=== PATIENT | female | born 1975 | race Caucasian/White ===

== ENCOUNTER 2016-12-10 00:13 | Emergency (ER) | payer OTHER ==
[2016-12-10 01:23] VITALS: BP 111/64; PULSE 64; TEMP 98; BMI 72.5
[2016-12-10] MEDS ORDERED: diphenhydrAMINE HCL 25 MG CAPSULE (FP) PO ONE ×2 (01:40→01:54)
[2016-12-10] MEDS ORDERED: CLOTRIMAZOLE/BETAMET DIPROP 15 GM TUBE TP SCH (01:45)
--- NOTE | 2016-12-10 01:46 | PDOC ---
History of Present Illness - General Chief Complaint: Vaginal Sxs Stated Complaint: VAGINAL SXS Time Seen by Provider: 12/10/16 00:48 History Source: Patient Exam Limitations: No Limitations - History of Present Illness Initial Comments: 12/10/16 01:40 Patient is a 41 year old female with h/o vertigo, stress incontinence, abdominoplasty, bilateral breast reduction c/o itching to the mons, groin and labia x 1 month, and peeling to her skin 2 days. States for about a week her symptoms have been worsening and the itching is unbearable. States about a month ago when the itching started, she went to her [facility] and was given a 1 day suppository but no relief of symptoms. Denies any itching in the vagina. She is sexually active with one partner without condoms. No history of any STD. States she had GC Chlamydia testing done 1 month ago and it was negative. She reports at what prompted her to the emergency room was when she goggled her symptoms and it told her she may have herpes. pmd: Dr. Hancock PMHX: as above PSOCHx: neg etoh, durg, cig ALL: NKDA GENERAL/CONSTITUTIONAL: [No fever or chills. No weakness. No weight change.] HEAD, EYES, EARS, NOSE AND THROAT: [No change in vision. No ear pain or discharge. No sore throat.] CARDIOVASCULAR: [No chest pain or shortness of breath.] RESPIRATORY: [No cough, wheezing, or hemoptysis.] GASTROINTESTINAL: [No nausea, vomiting, diarrhea or constipation. No rectal bleeding.] GENITOURINARY: [No dysuria, frequency, or change in urination.] MUSCULOSKELETAL: [No joint or muscle swelling or pain. No neck or back pain.] SKIN AND BREASTS: [No rash or easy bruising.] NEUROLOGIC: [No headache, vertigo, loss of consciousness, or loss of sensation.] PSYCHIATRIC: [No depression or anxiety.] ENDOCRINE: [No increased thirst. No abnormal weight change.] HEMATOLOGIC/LYMPHATIC: [No anemia, easy bleeding, or history of blood clots.] ALLERGIC/IMMUNOLOGIC: [No hives or skin allergy. No latex allergy.] GENERAL: [The patient is awake, alert, and fully oriented, in no acute distress. ] HEAD: [Normal with no signs of trauma.] EYES: [Pupils equal, round and reactive to light, extraocular movements intact, sclera anicteric, conjunctiva clear.] ENT: [Ears normal, nares patent, oropharynx clear without exudates. Moist mucous membranes.] NECK: [Normal range of motion, supple without lymphadenopathy, JVD, or masses.] LUNGS: [Breath sounds equal, clear to auscultation bilaterally. No wheezes, and no crackles.] HEART: [Regular rate and rhythm, normal S1 and S2 without murmur, rub.] ABDOMEN: [Soft, nontender, normoactive bowel sounds. No guarding, no rebound. No masses.] EXPRESSIVE THERAPIST: Hypopigmented well demarcated rash on the mons extending to the groin and to the fold along the thigh, with excoriations to the upper right mons and right thigh. Physiological discharge in vault. EXTREMITIES: [Normal range of motion, no edema. No clubbing or cyanosis. No cords, erythema, or tenderness.] NEUROLOGICAL: [Cranial nerves II through XII grossly intact. Normal speech, normal gait.] PSYCH: [Normal mood, normal affect.] SKIN: [Warm, Dry, normal turgor, no rashes or lesions noted.] Past History - Past Medical History Allergies/Adverse Reactions: Allergies Allergy/AdvReac Type Severity Reaction Status Date / Time No Known Allergies Allergy Verified 06/04/15 22:18 Home Medications: Ambulatory Orders Ibuprofen [Motrin -] 800 mg PO TID #20 tablet 09/26/12 Cephalexin Monohydrate [Keflex -] 500 mg PO BID #14 capsule 06/05/15 Clotrimazole [Antifungal] 30 gm TP BID #30 gm 12/10/16 - Immunization History Immunization Up to Date: Yes - Suicide/Smoking/Psychosocial Hx Smoking Status: No Smoking History: Never smoked Have you smoked in the past 12 months: No Number of Cigarettes Smoked Daily: 0 Information on smoking cessation initiated: No Hx Alcohol Use: No Drug/Substance Use Hx: No *Physical Exam - Vital Signs Last Vital Signs Temp Pulse Resp BP Pulse Ox 98.0 F 64 18 111/64 98 12/10/16 01:02 12/10/16 01:02 12/10/16 01:02 12/10/16 01:02 12/10/16 01:02 Medical Decision Making - Medical Decision Making 12/10/16 01:45 Patient is a 41 year old female with h/o vertigo, stress incontinence, abdominoplasty, bilateral breast reduction c/o itching to the mons, groin and labia x 1 month, and peeling to her skin 2 days. States for about a week her symptoms have been worsening and the itching is unbearable. Based on exam symptoms are consistent with tinea cruris. Treatment Chlortrimazole/cortisone cream, Benadryl by mouth for itching. Instructions for peak patient to follow with EXPRESSIVE THERAPIST I discussed the physical exam findings, ancillary test results and final diagnoses with the patient. I answered all of the patient's questions. The patient was satisfied with the care received and felt comfortable with the discharge plan and treatment plan. The Patient agrees to follow up with the primary care physician within 24-72 hours. *DC/Admit/Observation/Transfer Diagnosis at time of Disposition: Tinea cruris - Discharge Dispostion Disposition: HOME Condition at time of disposition: Stable - Referrals Referrals: Felisa Coleman MD [Primary Care Provider] - - Patient Instructions Printed Discharge Instructions: Tinea Cruris: PABLITO Obrien Itch Additional Instructions: Your Discharge Instructions: You must call primary care physician within 24 hours to arrange follow-up. Return to the Emergency Department with any new, persistent or worsening symptoms, for fever, chills, SOB, dizziness or any other concerning changes that may occur. You must follow-up with her EXPRESSIVE THERAPIST.
== END 2016-12-10 02:27 | disposition home or self-care (01) ==
LOC: JER 00:13
DX: B35.6 Tinea cruris (principal)
CPT/HCPCS: 99282-25

== ENCOUNTER 2017-09-01 17:08 | Emergency (ER) | payer OTHER ==
[2017-09-01 17:20] VITALS: BP 119/76; PULSE 70; TEMP 98.8; BMI 32.8
--- NOTE | 2017-09-01 18:40 | PDOC ---
History of Present Illness - General Chief Complaint: Suicidal Stated Complaint: PANIC ATTACK Time Seen by Provider: 09/01/17 17:35 History Source: Patient Exam Limitations: No Limitations - History of Present Illness Initial Comments: 09/01/17 20:41 The patient is a 42 year old female with a significant past medical history of anxiety and depression who presents to the ED with an episode of depression and anxiety since earlier today. The patient reports having a panic attack earlier today that she describes as shaking and crying. Patient states she went to her car and sat inside for hours, contemplating hurting herself but did not have a plan. Patient states she is currently under a lot of financial stress and her anxiety and depression are progressively worsening. She notes she was recently prescribed a new anxiety/depression medication that is unable to remember the name. Denies any other symptoms. Social: The patient is a mother of three children (21, 14, 11) who all live at home with her. Timing/Duration: changing over time Severity: moderate Associated Symptoms: reports: denies symptoms Past History - Past Medical History Allergies/Adverse Reactions: Allergies Allergy/AdvReac Type Severity Reaction Status Date / Time No Known Allergies Allergy Verified 09/01/17 17:11 Home Medications: Ambulatory Orders Ibuprofen [Motrin -] 800 mg PO TID #20 tablet 09/26/12 Cephalexin Monohydrate [Keflex -] 500 mg PO BID #14 capsule 06/05/15 Clotrimazole [Antifungal] 30 gm TP BID #30 gm 12/10/16 COPD: No Psychiatric Problems: Yes (depression, panic attacks) - Reproductive History Cervical CA: No Dysfunctional Uterine Bleeding: No Ectopic : No Endometrial CA: No Polycystic Ovaries: No Tubal Ligation: No - Immunization History Immunization Up to Date: Yes - Suicide/Smoking/Psychosocial Hx Smoking Status: No Smoking History: Never smoked Have you smoked in the past 12 months: No Number of Cigarettes Smoked Daily: 0 Hx Alcohol Use: No Drug/Substance Use Hx: No Review of Systems - Review of Systems Able to Perform ROS?: Yes Comments:: 09/01/17 20:41 CONSTITUTIONAL: Absent: fever, chills, diaphoresis, generalized weakness, malaise, loss of appetite HEENT: Absent: rhinorrhea, nasal congestion, throat pain, throat swelling, difficulty swallowing, mouth swelling, ear pain, eye pain, visual Changes CARDIOVASCULAR: Absent: chest pain, syncope, palpitations, irregular heart rate, lightheadedness , peripheral edema RESPIRATORY: Absent: cough, shortness of breath, dyspnea with exertion, orthopnea, wheezing, stridor, hemoptysis GASTROINTESTINAL: Absent: abdominal pain, abdominal distension, nausea, vomiting, diarrhea, constipation, melena, hematochezia GENITOURINARY: Absent: dysuria, frequency, urgency, hesitancy, hematuria, flank pain, genital pain MUSCULOSKELETAL: Absent: myalgia, arthralgia, joint swelling SKIN: Absent: rash, itching, pallor HEMATOLOGIC/IMMUNOLOGIC: Absent: easy bleeding, easy bruising, lymphadenopathy, frequent infections ENDOCRINE: Absent: unexplained weight gain, unexplained weight loss, heat intolerance, cold intolerance NEUROLOGIC: Absent: headache, focal weakness or paresthesias, dizziness, unsteady gait, seizure, mental status changes, bladder or bowel incontinence PSYCHIATRIC: + depression, anxiety Absent: hallucinations. *Physical Exam - Vital Signs Last Vital Signs Temp Pulse Resp BP Pulse Ox 98.8 F 70 19 119/76 98 09/01/17 17:12 09/01/17 17:12 09/01/17 17:12 09/01/17 17:12 09/01/17 17:12 - Physical Exam General Appearance: Yes: Nourished, Appropriately Dressed HEENT: positive: Normal Voice Neck: positive: Supple Respiratory/Chest: positive: Lungs Clear Cardiovascular: positive: Regular Rhythm, Regular Rate Gastrointestinal/Abdominal: positive: Soft Musculoskeletal: positive: Normal Inspection Extremity: positive: Normal Inspection, Normal Range of Motion Integumentary: positive: Warm Neurologic: positive: Fully Oriented, Alert Medical Decision Making - Medical Decision Making 09/01/17 18:44 42 YO FEMALW W H/O AnXIETY,PANIC ATTACKS p/w depression over her financial situation -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 -she currently is on public assistance living with her sons ages 21,14,11 She DENIES an actual plan to hurt herself, She said she would not do that because of her sons -SHE has taken anti depression meds for the past 20 years i consulted the door captain, Chitra Campbell and she will see the pt tonyaniv *DC/Admit/Observation/Transfer Diagnosis at time of Disposition: Anxiety - Discharge Dispostion Disposition: HOME Condition at time of disposition: Stable - Referrals Referrals: Felisa Coleman MD [Primary Care Provider] - Chitra Campbell NP [Nurse Practitioner] - - Patient Instructions Printed Discharge Instructions: DI for Anxiety -- Adult Additional Instructions: PLEASE TAKE YOUR REGUALE MEDICATIONS PLEASE MAKE AN APPOINTMENT WITH EITHER MS CAMPBELL OR YOUR REGULAR DOCTOR - Post Discharge Activity Forms/Work/School Notes: My Personal Safety Plan
== END 2017-09-01 19:44 | disposition home or self-care (01) ==
LOC: JER 17:08
DX: F41.8 Other specified anxiety disorders (principal)
CPT/HCPCS: 99281-25

== ENCOUNTER 2018-04-18 17:14 | Emergency (ER) | payer OTHER ==
--- NOTE | 2018-04-18 17:35 | PDOC ---
Rapid Medical Evaluation Time Seen by Provider: 04/18/18 17:33 Medical Evaluation: Allergies Allergy/AdvReac Type Severity Reaction Status Date / Time No Known Allergies Allergy Verified 09/01/17 17:11 04/18/18 17:33 I have performed a brief in-person evaluation of this patient. The patient presents with a chief complaint of:Lower back pain x2 months with Lower extremity radiculopathy Pertinent physical exam findings:No gross deficits I have ordered the following:U preg The patient will proceed to the ED for further evaluation. 04/18/18 17:34 Discharge Disposition - Diagnosis Back pain - Referrals - Patient Instructions - Post Discharge Activity
[2018-04-18 17:37] VITALS: BP 122/66; PULSE 74; TEMP 98.1; BMI 31.4
[2018-04-18] MEDS ORDERED: KETOROLAC TROMETHAMINE 60 MG/2 ML VIAL IM ONE (18:25)
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
[2018-04-18] MEDS ORDERED: KETOROLAC TROMETHAMINE 60 MG/2 ML VIAL ONE (18:31)
== END 2018-04-18 18:45 | disposition home or self-care (01) ==
LOC: JERFT 17:14
PROC: 3E0233Z Introduction of Anti-inflammatory into Muscle, Percutaneous Approach (ICD-10-PCS; principal; 2018-04-18)
DX: M54.5 Low back pain (principal); G89.29 Other chronic pain; F41.8 Other specified anxiety disorders; F41.0 Panic disorder [episodic paroxysmal anxiety]
CPT/HCPCS: 84703; 96372; 99281-25

== ENCOUNTER 2018-07-22 18:25 | Emergency (ER) | payer OTHER | END 2018-07-22 21:13 | disposition home or self-care (01) | LOC: JER 18:25 ==

== ENCOUNTER 2018-10-31 12:20 | Inpatient (IN) | payer OTHER ==
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
[2018-10-31 13:55] LABS: BASO % 0.3 % (0-2.0); EOS % 1.7 % (0-4.5); HEMOGLOBIN 11.2 GM/dL (10.7-15.3); LYMPH % 32.3 % (8-40); MCH 24.4 pg (25.7-33.7); MEAN CELL VOLUME 73.9 fl (80-96); MEAN PLT VOLUME 10.4 fl (7.5-11.1); MONO % 10.9 % (3.8-10.2); NEUT % 54.8 % (42.8-82.8); PLATELET COUNT 155 K/MM3 (134-434); RDW 17.4 % (11.6-15.6)
[2018-10-31 14:12] LABS: ALBUMIN 3.7 g/dl (3.4-5.0); ALK PHOS 82 U/L (45-117); AMYLASE 73 U/L (25-115); ANION GAP 8 MMOL/L (8-16); BLOOD UREA NITROGEN 10.9 mg/dL (7-18); CALCIUM 8.6 mg/dL (8.5-10.1); CHLORIDE 104 mmol/L (98-107); CO2 27 mmol/L (21-32); CREATININE 0.8 mg/dL (0.55-1.3); GLUCOSE,RANDOM 79 mg/dL (74-106); LIPASE 179 U/L (73-393); SGOT/AST 17 U/L (15-37); SGPT/ALT 17 U/L (13-61); SODIUM 139 mmol/L (136-145); TOT PROT 8.2 g/dl (6.4-8.2)
[2018-10-31 15:26] LABS: EPI CELLS 11.4 /HPF (0-5/HPF); HYALINE CASTS 69 /lpf (0-8); URINE APPEARANCE CLOUDY; URINE BACTERIA 4.7 /hpf (NEGATIVE); URINE BILIRUBIN NEGATIVE (NEGATIVE); URINE COLOR RED; URINE GLUCOSE (UA) NEGATIVE (NEGATIVE); URINE KETONE NEGATIVE (NEGATIVE); URINE LEUK ESTERASE 2+ (NEGATIVE); URINE NITRITE NEGATIVE (NEGATIVE); URINE PROTEIN 2+ (NEGATIVE); URINE UROBILINOGEN 0.2 mg/dL (0.2-1.0); URINE WBC 11 /hpf (0-5)
[2018-10-31] MEDS ORDERED: ACETAMINOPHEN 1000 MG/100 ML VIAL (NON FORMULARY) IVPB ONE (15:40)
[2018-10-31 15:44] LABS: URINE RBC 4222.8 /hpf (0-4); YEAST NONE SEEN (NEGATIVE)
[2018-10-31 15:46] LABS: COCAINE, UR NEGATIVE ng/ml (CUTOFF=300); METHADONE, UR NEGATIVE ng/ml (CUTOFF=300); OPIATES, URI NEGATIVE ng/ml (CUTOFF=300); PHENCYCLIDINE,URINE NEGATIVE ng/ml (CUTOFF=25); URINE AMPHETAMINES NEGATIVE ng/ml (CUTOFF=500); URINE BARBITURATES NEGATIVE ng/ml (CUTOFF=200); URINE BENZODIAZEPINES NEGATIVE ng/ml (CUTOFF=200)
[2018-10-31] MEDS ORDERED: ACETAMINOPHEN INJECTION 100 ML IVPB ONE (15:51)
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
--- NOTE | 2018-10-31 17:12 | PDOC ---
Documentation entered by Zhen Hamilton SCRIBE, acting as scribe for Catherine Kathleen MD. Catherine Kathleen MD: This documentation has been prepared by the Alfonso estrada Elijah, SCRIBE, under my direction and personally reviewed by me in its entirety. I confirm that the documentation accurately reflects all work, treatment, procedures, and medical decision making performed by me. Attending Attestation - Resident Resident Name: Douglas Jasso - ED Attending Attestation I have performed the following: I have examined & evaluated the patient, The case was reviewed & discussed with the resident, I agree w/resident's findings & plan, Exceptions are as noted - HPI HPI: 10/31/18 15:25 Patient is a 43 year old female with a significant past medical history of Anxiety disorder who presents to the ED with an overdose. Patient took an unknown amount of Lexipro secondary to stress. Patient endorses headache, nausea and abdominal pain. Denies active SI, but has thoughts of hurting herself from time to time. Denies AH, VH, HI. Denies other ingestions of drugs or etoh. Allergies: NKA - Physicial Exam PE: 10/31/18 15:29 Agree with Resident's Exam. - Medical Decision Making 10/31/18 17:10 43yo F presents to the ED with overdose on unknown amount of lexapro Pt placed on watch due to intermittent SI Rec's from poison control to medically observe on tele for 24hrs Labs wnl thus far SURGERY NURSE David consutled for psych evaluation Pt admitted to medicine for further dispo, will continue watch Heart Score/ECG Review #1 10/31/18 17:12 Twelve-lead EKG was performed and reviewed by me. Normal sinus rhythm, rate 69. Normal axis and intervals. No ST elevations or T-wave inversions. QTC is 4:30.
--- NOTE | 2018-10-31 18:18 | PN ---
Teaching Attending Note Name of Resident: Ana Aburto ATTENDING PHYSICIAN STATEMENT I saw and evaluated the patient. I reviewed the resident's note and discussed the case with the resident. I agree with the resident's findings and plan as documented. SUBJECTIVE: This is a 43 year old woman with a history of depression, panic attacks who comes to the ED after taking several Lexapro. She is lethargic but easily aroused. She reports feeling depressed and having suicidal thoughts but denies having a plan. She says she took extra Lexapro pills because she was feeling anxious and that it was not an attempt to kill herself. OBJECTIVE: Vital Signs Period Temp Pulse Resp BP Sys/Felix Pulse Ox Last 24 Hr 98.0 F 68-85 15-16 128-133/62-77 100-100 HEART: S1S2, RRR LUNGS: Clear ABDOMEN: Obese, soft, non-tender, non-distended, normal BS EXTREMITIES: No edema Laboratory Tests 10/31/18 10/31/18 10/31/18 13:20 13:20 13:20 WBC 6.0 RBC 4.60 Hgb 11.2 Hct 34.0 MCV 73.9 L MCH 24.4 L D MCHC 33.0 RDW 17.4 H Plt Count 155 D MPV 10.4 Absolute Neuts (auto) 3.3 Neutrophils % 54.8 D Lymphocytes % 32.3 D Monocytes % 10.9 H Eosinophils % 1.7 Basophils % 0.3 Nucleated RBC % 0 Sodium Potassium Chloride Carbon Dioxide Anion Gap BUN Creatinine Est GFR (CKD-EPI)AfAm Est GFR (CKD-EPI)NonAf Random Glucose Calcium Total Bilirubin AST ALT Alkaline Phosphatase Creatine Kinase Troponin I Total Protein Albumin Total Amylase Lipase TSH Serum , Qual Negative Urine Color Urine Appearance Urine pH Ur Specific [place] Urine Protein Urine Glucose (UA) Urine Ketones Urine Blood Urine Nitrite Urine Bilirubin Urine Urobilinogen Ur Leukocyte Esterase Urine WBC (Auto) Urine RBC (Auto) Urine Casts (Auto) U Pathogenic Cast Auto U Epithel Cells (Auto) U Sm Round Cell (Auto) Urine Bacteria (Auto) Urine Yeast (Auto) Salicylates Cancelled Opiates Screen Methadone Screen Acetaminophen <5.0 Barbiturate Screen Phencyclidine Screen Ur Amphetamines Screen MDMA (Ecstasy) Screen Benzodiazepines Screen Cocaine Screen U Marijuana (THC) Screen Alcohol, Quantitative 10/31/18 10/31/18 10/31/18 13:20 13:30 14:04 WBC RBC Hgb Hct MCV MCH MCHC RDW Plt Count MPV Absolute Neuts (auto) Neutrophils % Lymphocytes % Monocytes % Eosinophils % Basophils % Nucleated RBC % Sodium 139 Potassium 4.0 Chloride 104 Carbon Dioxide 27 Anion Gap 8 BUN 10.9 Creatinine 0.8 Est GFR (CKD-EPI)AfAm 104.65 Est GFR (CKD-EPI)NonAf 90.30 Random Glucose 79 Calcium 8.6 Total Bilirubin 1.0 AST 17 ALT 17 Alkaline Phosphatase 82 Creatine Kinase 86 Troponin I < 0.02 Total Protein 8.2 Albumin 3.7 Total Amylase 73 Lipase 179 TSH 1.76 Serum , Qual Urine Color Urine Appearance Urine pH Ur Specific [place] Urine Protein Urine Glucose (UA) Urine Ketones Urine Blood Urine Nitrite Urine Bilirubin Urine Urobilinogen Ur Leukocyte Esterase Urine WBC (Auto) Urine RBC (Auto) Urine Casts (Auto) U Pathogenic Cast Auto U Epithel Cells (Auto) U Sm Round Cell (Auto) Urine Bacteria (Auto) Urine Yeast (Auto) Salicylates Opiates Screen Methadone Screen Acetaminophen Barbiturate Screen Phencyclidine Screen Ur Amphetamines Screen MDMA (Ecstasy) Screen Benzodiazepines Screen Cocaine Screen U Marijuana (THC) Screen Alcohol, Quantitative Cancelled < 3.0 10/31/18 10/31/18 15:00 15:00 WBC RBC Hgb Hct MCV MCH MCHC RDW Plt Count MPV Absolute Neuts (auto) Neutrophils % Lymphocytes % Monocytes % Eosinophils % Basophils % Nucleated RBC % Sodium Potassium Chloride Carbon Dioxide Anion Gap BUN Creatinine Est GFR (CKD-EPI)AfAm Est GFR (CKD-EPI)NonAf Random Glucose Calcium Total Bilirubin AST ALT Alkaline Phosphatase Creatine Kinase Troponin I Total Protein Albumin Total Amylase Lipase TSH Serum , Qual Urine Color Red Urine Appearance Cloudy Urine pH 5.0 Ur Specific [place] 1.014 Urine Protein 2+ H Urine Glucose (UA) Negative Urine Ketones Negative Urine Blood 3+ H Urine Nitrite Negative Urine Bilirubin Negative Urine Urobilinogen 0.2 Ur Leukocyte Esterase 2+ H Urine WBC (Auto) 11 Urine RBC (Auto) 4222.8 Urine Casts (Auto) 69 U Pathogenic Cast Auto None seen U Epithel Cells (Auto) 11.4 U Sm Round Cell (Auto) None seen Urine Bacteria (Auto) 4.7 Urine Yeast (Auto) None seen Salicylates Opiates Screen Negative Methadone Screen Negative Acetaminophen Barbiturate Screen Negative Phencyclidine Screen Negative Ur Amphetamines Screen Negative MDMA (Ecstasy) Screen Negative Benzodiazepines Screen Negative Cocaine Screen Negative U Marijuana (THC) Screen Negative Alcohol, Quantitative Home Medications Medication Instructions Recorded Cetirizine HCl [Zyrtec -] 10 mg PO DAILY 07/22/18 Fluticasone Prop 0.05% Nasal 1 - 2 spray NS BID #1 spray.pump 07/22/18 [Flonase -] Meclizine HCl 12.5 mg PO PRN PRN 07/22/18 Naproxen [Naprosyn -] 500 mg PO BID PRN 07/22/18 Escitalopram Oxalate [Lexapro -] 5 mg PO DAILY 10/31/18 ASSESSMENT AND PLAN: This is a 43 year old woman with a history of depression, panic attacks who presented to the ED after taking several Lexapro because she was feeling anxious. She reported suicidal thoughts but denied this was a suicide attempt. 1. Overdose with Lexapro - Monitor on telemetry - Serial EKGs - Hold Lexapro 2. Major depression with suicidal ideation - Psychiatry input appreciated
--- NOTE | 2018-10-31 19:19 | HP ---
Admitting History and Physical - Admission Chief Complaint: overdose on SSRI History Source: Patient - Past Medical History ...LMP: 12/08/16 Psych: Yes: Anxiety, Depression, Panic - Smoking History Smoking history: Unknown if ever smoked Have you smoked in the past 12 months: No Aproximately how many cigarettes per day: 0 - Alcohol/Substance Use Hx Alcohol Use: No Home Medications - Allergies Allergies/Adverse Reactions: Allergies Allergy/AdvReac Type Severity Reaction Status Date / Time No Known Allergies Allergy Verified 10/31/18 12:30 - Home Medications Home Medications: Ambulatory Orders Cetirizine HCl [Zyrtec -] 10 mg PO DAILY 07/22/18 Fluticasone Prop 0.05% Nasal [Flonase -] 1 - 2 spray NS BID #1 spray.pump Meclizine HCl 12.5 mg PO PRN PRN 07/22/18 Naproxen [Naprosyn -] 500 mg PO BID PRN 07/22/18 Escitalopram Oxalate [Lexapro -] 5 mg PO DAILY 10/31/18 Family Disease History - Family Disease History Other Family History: depression Review of Systems - Review of Systems Constitutional: reports: Weakness Gastrointestinal: reports: Nausea Neurological: reports: Dizziness Physical Examination Vital Signs: Vital Signs Temperature 98.0 F 10/31/18 12:28 Pulse Rate 85 10/31/18 15:28 Respiratory Rate 15 10/31/18 15:28 Blood Pressure 128/77 10/31/18 15:28 O2 Sat by Pulse Oximetry (%) 100 10/31/18 15:28 Constitutional: Yes: No Distress Cardiovascular: Yes: Regular Rate and Rhythm Respiratory: Yes: CTA Bilaterally Gastrointestinal: Yes: Normal Bowel Sounds, Soft Extremities: Yes: WNL Edema: No Neurological: Yes: WNL, Alert, Oriented Labs: CBC, BMP 10/31/18 13:20 10/31/18 13:20 Problem List - Problems (1) Overdose Code(s): T50.901A - POISONING BY UNSP DRUG/MEDS/BIOL SUBST, ACCIDENTAL, INIT Qualifiers: Encounter type: initial encounter Injury intent: undetermined intent Qualified Code(s): T50.904A - Poisoning by unspecified drugs, medicaments and biological substances, undetermined, initial encounter Assessment/Plan will do serial EKGS holding SSRI for now psych on board Zofran PRN for nausea ER spoke with poison control; serial EKGS needed and if seizure occurs PRN ativan Psych on board Visit type - Emergency Visit Emergency Visit: Yes ED Registration Date: 10/31/18 Care time: The patient presented to the Emergency Department on the above date and was hospitalized for further evaluation of their emergent condition. - New Patient This patient is new to me today: Yes Date on this admission: 10/31/18 - Critical Care Critical Care patient: No ATTENDING PHYSICIAN STATEMENT I saw and evaluated the patient. I reviewed the resident's note and discussed the case with the resident. I agree with the resident's findings and plan as documented. SUBJECTIVE: OBJECTIVE: ASSESSMENT AND PLAN:
[2018-11-01 02:45] VITALS: BMI 34.9
[2018-11-01] MEDS ORDERED: CEFTRIAXONE 1 GM in DEXTROSE 5%-WATER - 50 ML IVPB ONE (06:35)
[2018-11-01] MEDS ORDERED: DEXTROSE 5%-WATER - 50 ML IVPB ONE (07:00)
[2018-11-01] MEDS ORDERED: cefTRIAXone SODIUM 1 GM VIAL ONE (07:00)
[2018-11-01 07:15] LABS: ALBUMIN 3.3 g/dl (3.4-5.0); BILIRUBIN,TOTAL 0.9 mg/dL (0.2-1); BLOOD UREA NITROGEN 9.8 mg/dL (7-18); CALCIUM 8.5 mg/dL (8.5-10.1); CREATININE 0.7 mg/dL (0.55-1.3); MAGNESIUM 2.1 mg/dL (1.8-2.4); POTASSIUM 3.8 mmol/L (3.5-5.1); TOT PROT 7.2 g/dl (6.4-8.2)
[2018-11-01 07:33] LABS: BASO % 0.4 % (0-2.0); EOS % 2.9 % (0-4.5); HEMATOCRIT 31.4 % (32.4-45.2); HEMOGLOBIN 10.5 GM/dL (10.7-15.3); LYMPH % 37.3 % (8-40); MCH 24.5 pg (25.7-33.7); MCHC 33.4 g/dl (32.0-36.0); MEAN CELL VOLUME 73.5 fl (80-96); MEAN PLT VOLUME 10.9 fl (7.5-11.1); MONO % 10.5 % (3.8-10.2); NEUT % 48.9 % (42.8-82.8); PLATELET COUNT 157 K/MM3 (134-434); RBC 4.27 M/mm3 (3.60-5.2); RDW 17.3 % (11.6-15.6); WHITE BLOOD COUNT 5.2 K/mm3 (4.0-10.0)
--- NOTE | 2018-11-01 14:06 | PN ---
Physical Exam: SUBJECTIVE: Patient seen and examined. She reports feeling lightheaded. OBJECTIVE: Vital Signs Period Temp Pulse Resp BP Sys/Felix Pulse Ox Last 24 Hr 97.9 F-98.3 F 60-85 13-17 118-136/68-82 99-100 GENERAL: The patient is awake, alert, and fully oriented, in no acute distress. LUNGS: Breath sounds equal, clear to auscultation bilaterally, no wheezes, no crackles, no accessory muscle use. HEART: Regular rate and rhythm, S1, S2 without murmur, rub or gallop. ABDOMEN: Obese, soft, nontender, nondistended, normoactive bowel sounds, no guarding, no rebound, no hepatosplenomegaly, no masses. EXTREMITIES: 2+ pulses, warm, well-perfused, no edema. NEUROLOGICAL: Cranial nerves II through XII grossly intact. Normal speech. Strength 5/5 throughout. Sensation intact. Gait not observed. Laboratory Results - last 24 hr 10/31/18 10/31/18 10/31/18 13:20 13:20 13:30 WBC RBC Hgb Hct MCV MCH MCHC RDW Plt Count MPV Absolute Neuts (auto) Neutrophils % Lymphocytes % Monocytes % Eosinophils % Basophils % Nucleated RBC % Sodium 139 Potassium 4.0 Chloride 104 Carbon Dioxide 27 Anion Gap 8 BUN 10.9 Creatinine 0.8 Est GFR (CKD-EPI)AfAm 104.65 Est GFR (CKD-EPI)NonAf 90.30 Random Glucose 79 Calcium 8.6 Magnesium Total Bilirubin 1.0 AST 17 ALT 17 Alkaline Phosphatase 82 Creatine Kinase 86 Troponin I < 0.02 Total Protein 8.2 Albumin 3.7 Total Amylase 73 Lipase 179 TSH 1.76 Urine Color Urine Appearance Urine pH Ur Specific [place] Urine Protein Urine Glucose (UA) Urine Ketones Urine Blood Urine Nitrite Urine Bilirubin Urine Urobilinogen Ur Leukocyte Esterase Urine WBC (Auto) Urine RBC (Auto) Urine Casts (Auto) U Pathogenic Cast Auto U Epithel Cells (Auto) U Sm Round Cell (Auto) Urine Bacteria (Auto) Urine Yeast (Auto) Salicylates Cancelled Opiates Screen Methadone Screen Acetaminophen <5.0 Barbiturate Screen Phencyclidine Screen Ur Amphetamines Screen MDMA (Ecstasy) Screen Benzodiazepines Screen Cocaine Screen U Marijuana (THC) Screen Alcohol, Quantitative Cancelled 10/31/18 10/31/18 10/31/18 13:43 14:04 15:00 WBC RBC Hgb Hct MCV MCH MCHC RDW Plt Count MPV Absolute Neuts (auto) Neutrophils % Lymphocytes % Monocytes % Eosinophils % Basophils % Nucleated RBC % Sodium Potassium Chloride Carbon Dioxide Anion Gap BUN Creatinine Est GFR (CKD-EPI)AfAm Est GFR (CKD-EPI)NonAf Random Glucose Calcium Magnesium Total Bilirubin AST ALT Alkaline Phosphatase Creatine Kinase Troponin I Total Protein Albumin Total Amylase Lipase TSH Urine Color Urine Appearance Urine pH Ur Specific [place] Urine Protein Urine Glucose (UA) Urine Ketones Urine Blood Urine Nitrite Urine Bilirubin Urine Urobilinogen Ur Leukocyte Esterase Urine WBC (Auto) Urine RBC (Auto) Urine Casts (Auto) U Pathogenic Cast Auto U Epithel Cells (Auto) U Sm Round Cell (Auto) Urine Bacteria (Auto) Urine Yeast (Auto) Salicylates < 1.7 L Opiates Screen Negative Methadone Screen Negative Acetaminophen Barbiturate Screen Negative Phencyclidine Screen Negative Ur Amphetamines Screen Negative MDMA (Ecstasy) Screen Negative Benzodiazepines Screen Negative Cocaine Screen Negative U Marijuana (THC) Screen Negative Alcohol, Quantitative < 3.0 10/31/18 11/01/18 11/01/18 15:00 05:55 05:55 WBC 5.2 RBC 4.27 Hgb 10.5 L Hct 31.4 L MCV 73.5 L MCH 24.5 L MCHC 33.4 RDW 17.3 H Plt Count 157 MPV 10.9 Absolute Neuts (auto) 2.5 Neutrophils % 48.9 Lymphocytes % 37.3 Monocytes % 10.5 H Eosinophils % 2.9 Basophils % 0.4 Nucleated RBC % 0 Sodium 141 Potassium 3.8 Chloride 107 Carbon Dioxide 28 Anion Gap 6 L BUN 9.8 Creatinine 0.7 Est GFR (CKD-EPI)AfAm 122.99 Est GFR (CKD-EPI)NonAf 106.12 Random Glucose 89 Calcium 8.5 Magnesium 2.1 Total Bilirubin 0.9 AST 17 ALT 15 Alkaline Phosphatase 72 Creatine Kinase Troponin I Total Protein 7.2 Albumin 3.3 L Total Amylase Lipase TSH Urine Color Red Urine Appearance Cloudy Urine pH 5.0 Ur Specific [place] 1.014 Urine Protein 2+ H Urine Glucose (UA) Negative Urine Ketones Negative Urine Blood 3+ H Urine Nitrite Negative Urine Bilirubin Negative Urine Urobilinogen 0.2 Ur Leukocyte Esterase 2+ H Urine WBC (Auto) 11 Urine RBC (Auto) 4222.8 Urine Casts (Auto) 69 U Pathogenic Cast Auto None seen U Epithel Cells (Auto) 11.4 U Sm Round Cell (Auto) None seen Urine Bacteria (Auto) 4.7 Urine Yeast (Auto) None seen Salicylates Opiates Screen Methadone Screen Acetaminophen Barbiturate Screen Phencyclidine Screen Ur Amphetamines Screen MDMA (Ecstasy) Screen Benzodiazepines Screen Cocaine Screen U Marijuana (THC) Screen Alcohol, Quantitative ASSESSMENT/PLAN: This is a 43 year old woman with a history of depression, panic attacks who presented to the ED after taking several Lexapro because she was feeling anxious. She reported suicidal thoughts but denied this was a suicide attempt. 1. Overdose with Lexapro - No arrhythmias or QT prolongation noted - Continue to hold Lexapro 2. Major depression with suicidal ideation - Lexapro on hold secondary to overdose - Continue 1:1 observation - Psychiatry follow-up 3. Obesity with BMI 35.0 Visit type - Emergency Visit Emergency Visit: Yes ED Registration Date: 10/31/18 Care time: The patient presented to the Emergency Department on the above date and was hospitalized for further evaluation of their emergent condition. - New Patient This patient is new to me today: No - Critical Care Critical Care patient: No - Discharge Referral Referred to [facility] Med P.C.: No
--- NOTE | 2018-11-01 16:02 | EKG ---
Test Reason : Blood Pressure : / mmHG Vent. Rate : 057 BPM Atrial Rate : 057 BPM P-R Int : 136 ms QRS Dur : 074 ms QT Int : 442 ms P-R-T Axes : 060 066 051 degrees QTc Int : 430 ms SINUS BRADYCARDIA OTHERWISE NORMAL ECG WHEN COMPARED WITH ECG OF 31-OCT-2018 12:41, NO SIGNIFICANT CHANGE WAS FOUND Confirmed by DOMO SERRANO, BEV ([id number]) on 11/01/2018 4:01:43 PM Referred By: Confirmed By:BEV OLIVEROS MD
--- NOTE | 2018-11-01 16:05 | EKG ---
Test Reason : Blood Pressure : / mmHG Vent. Rate : 069 BPM Atrial Rate : 069 BPM P-R Int : 140 ms QRS Dur : 074 ms QT Int : 402 ms P-R-T Axes : 034 056 046 degrees QTc Int : 430 ms NORMAL SINUS RHYTHM NORMAL ECG WHEN COMPARED WITH ECG OF 22-JUL-2018 18:24, NO SIGNIFICANT CHANGE WAS FOUND Confirmed by BEV OLIVEROS MD ([id number]) on 11/01/2018 4:05:20 PM Referred By: Confirmed By:BEV OLIVEROS MD
[2018-11-01] MEDS ORDERED: ACETAMINOPHEN 1000 MG/100 ML VIAL (NON FORMULARY) IVPB ONE (20:05)
[2018-11-02 06:09] LABS: HEMATOCRIT 31.7 % (32.4-45.2); HEMOGLOBIN 10.6 GM/dL (10.7-15.3); MCH 24.6 pg (25.7-33.7); MCHC 33.5 g/dl (32.0-36.0); MEAN CELL VOLUME 73.5 fl (80-96); MEAN PLT VOLUME 10.2 fl (7.5-11.1); PLATELET COUNT 154 K/MM3 (134-434); RBC 4.31 M/mm3 (3.60-5.2); RDW 17.3 % (11.6-15.6); WHITE BLOOD COUNT 5.4 K/mm3 (4.0-10.0)
[2018-11-02 06:38] LABS: ALBUMIN 3.3 g/dl (3.4-5.0); BILIRUBIN,TOTAL 0.7 mg/dL (0.2-1); BLOOD UREA NITROGEN 11.9 mg/dL (7-18); CALCIUM 8.6 mg/dL (8.5-10.1); CREATININE 0.7 mg/dL (0.55-1.3); POTASSIUM 3.7 mmol/L (3.5-5.1); TOT PROT 7.5 g/dl (6.4-8.2)
--- NOTE | 2018-11-02 13:48 | CON.PSY ---
Psychiatry Consult Chief Complaint: 43 Yw4ra 9old female mother of two teenage kids admitted with an Lexapro overdose. 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 Gets psych meds from her Primary cxare MD. Symptoms: reports: Depressed Mood, Anhedonia, Decreased Energy, Impaired Concentration, Decreased Motivation - Previous Psychiatric Treatment Outpatient: Less than 6 mos ago Inpatient: One prior admission - Previous Substance Abuse Treatment Outpatient: None Inpatient: None - Reason for Previous Treatment Reason for Previous Treatment: Major Depression, Suicidal Attempt/Behavior - Allergies Allergies: Allergies Allergy/AdvReac Type Severity Reaction Status Date / Time No Known Allergies Allergy Verified 10/31/18 12:30 - Current Living Status Usual Living Arrangement: With Child - Current Mental Status Evaluation Appearance: Disheveled Attitude: Guarded - Affect Affect: Constrictive Appropriateness: Appropriate to Content - Mood Mood: Depressed - Speech/Language Expressive: Delayed - Psychomotor Activity Psychomotor Activity: Slowed - Thought Process Thought Process: Intact - Thought Content Hallucinations: Absent Delusions: Absent - Self Perception Self Perception: No Impairment - Cognition Attention: Alert Memory, Immediate Recall: Intact Memory, Short Term: 3/3 Memory, Remote with Promptin/3 - Concentration Serial Sevens Intact: Yes Simple Calculations Intact: Yes - Abstraction Proverb Interpretation: Intact Judgement: Moderately Impaired - Insight Insight: Impaired - Impulse Control Impulse Control: Moderately Impaired - Suicidal Ideation Suicidal Ideation: Yes - Homicidal Ideation Homicidal Ideation: No Assessment/Plan 1) cONTINUE with 1:1. 2) May need In Patient Psych admission. 3) will follow.
--- NOTE | 2018-11-02 14:48 | PN ---
Physical Exam: SUBJECTIVE: Patient seen and examined. She feels less dizzy today. She denies CP , palpitations, SOB, nausea, vomiting. OBJECTIVE: Vital Signs Period Temp Pulse Resp BP Sys/Felix Pulse Ox Last 24 Hr 97.8 F-98.5 F 54-77 12-16 105-135/47-96 100-100 GENERAL: The patient is awake, alert, and fully oriented, in no acute distress. LUNGS: Breath sounds equal, clear to auscultation bilaterally, no wheezes, no crackles, no accessory muscle use. HEART: Regular rate and rhythm, S1, S2 without murmur, rub or gallop. ABDOMEN: Obese, soft, nontender, nondistended, normoactive bowel sounds, no guarding, no rebound, no hepatosplenomegaly, no masses. EXTREMITIES: 2+ pulses, warm, well-perfused, no edema. Laboratory Results - last 24 hr 11/02/18 11/02/18 05:40 05:40 WBC 5.4 RBC 4.31 Hgb 10.6 L Hct 31.7 L MCV 73.5 L MCH 24.6 L MCHC 33.5 RDW 17.3 H Plt Count 154 MPV 10.2 Sodium 140 Potassium 3.7 Chloride 105 Carbon Dioxide 27 Anion Gap 7 L BUN 11.9 Creatinine 0.7 Est GFR (CKD-EPI)AfAm 122.99 Est GFR (CKD-EPI)NonAf 106.12 Random Glucose 92 Calcium 8.6 Total Bilirubin 0.7 AST 18 ALT 16 Alkaline Phosphatase 70 Total Protein 7.5 Albumin 3.3 L ASSESSMENT/PLAN: This is a 43 year old woman with a history of depression, panic attacks who presented to the ED after taking several Lexapro because she was feeling anxious. She reported suicidal thoughts but denied this was a suicide attempt. 1. Overdose with Lexapro - No arrhythmias or QT prolongation noted - Continue to hold Lexapro - Discontinue telemetry 2. Major depression with suicidal ideation - Lexapro on hold secondary to overdose - Continue 1:1 observation - Psychiatry input appreciated 3. Obesity with BMI 35.0 Visit type - Emergency Visit Emergency Visit: Yes ED Registration Date: 10/31/18 Care time: The patient presented to the Emergency Department on the above date and was hospitalized for further evaluation of their emergent condition. - New Patient This patient is new to me today: No - Critical Care Critical Care patient: No - Discharge Referral Referred to [facility] Med P.C.: No
[2018-11-02] MEDS ORDERED: MELATONIN 5 MG TABLETS PO ONE (22:49)
[2018-11-03 07:34] LABS: HEMATOCRIT 32.7 % (32.4-45.2); HEMOGLOBIN 10.8 GM/dL (10.7-15.3); MCH 24.5 pg (25.7-33.7); MCHC 32.9 g/dl (32.0-36.0); MEAN CELL VOLUME 74.3 fl (80-96); PLATELET COUNT 161 K/MM3 (134-434); RDW 17.2 % (11.6-15.6); WHITE BLOOD COUNT 7.1 K/mm3 (4.0-10.0)
[2018-11-03 08:01] LABS: ALBUMIN 3.3 g/dl (3.4-5.0); BILIRUBIN,TOTAL 0.7 mg/dL (0.2-1); BLOOD UREA NITROGEN 10.7 mg/dL (7-18); CALCIUM 8.8 mg/dL (8.5-10.1); CREATININE 0.8 mg/dL (0.55-1.3); TOT PROT 7.6 g/dl (6.4-8.2)
--- NOTE | 2018-11-03 10:01 | PN ---
Physical Exam: SUBJECTIVE: Patient seen and examined OBJECTIVE: Vital Signs Period Temp Pulse Resp BP Sys/Felix Pulse Ox Last 24 Hr 97.8 F-98.0 F 65-88 12-18 100-126/54-96 98 GENERAL: The patient is awake, alert, and fully oriented, in no acute distress. HEAD: Normal with no signs of trauma. EYES: PERRL, extraocular movements intact, sclera anicteric, conjunctiva clear. No ptosis. ENT: Ears normal, nares patent, oropharynx clear without exudates, moist mucous membranes. NECK: Trachea midline, full range of motion, supple. LUNGS: Breath sounds equal, clear to auscultation bilaterally, no wheezes, no crackles, no accessory muscle use. HEART: Regular rate and rhythm, S1, S2 without murmur, rub or gallop. ABDOMEN: Soft, nontender, nondistended, normoactive bowel sounds, no guarding, no rebound, no hepatosplenomegaly, no masses. EXTREMITIES: 2+ pulses, warm, well-perfused, no edema. NEUROLOGICAL: Cranial nerves II through XII grossly intact. Normal speech, gait not observed. PSYCH: Normal mood, normal affect. SKIN: Warm, dry, normal turgor, no rashes or lesions noted Laboratory Results - last 24 hr 11/03/18 11/03/18 06:30 06:30 WBC 7.1 RBC 4.40 Hgb 10.8 Hct 32.7 MCV 74.3 L MCH 24.5 L MCHC 32.9 RDW 17.2 H Plt Count 161 MPV 11.0 Sodium 138 Potassium 4.0 Chloride 104 Carbon Dioxide 27 Anion Gap 6 L BUN 10.7 Creatinine 0.8 Est GFR (CKD-EPI)AfAm 104.65 Est GFR (CKD-EPI)NonAf 90.30 Random Glucose 86 Calcium 8.8 Total Bilirubin 0.7 AST 19 ALT 19 Alkaline Phosphatase 69 Total Protein 7.6 Albumin 3.3 L ASSESSMENT/PLAN: ATTENDING PHYSICIAN STATEMENT I saw and evaluated the patient. I reviewed the resident's note and discussed the case with the resident. I agree with the resident's findings and plan as documented. SUBJECTIVE: OBJECTIVE: ASSESSMENT AND PLAN:
--- NOTE | 2018-11-03 13:22 | PN ---
Teaching Attending Note Name of Resident: Myles Grace ATTENDING PHYSICIAN STATEMENT I saw and evaluated the patient. I reviewed the resident's note and discussed the case with the resident. I agree with the resident's findings and plan as documented. SUBJECTIVE: Patient has no complaints. OBJECTIVE: Vital Signs Period Temp Pulse Resp BP Sys/Felix Pulse Ox Last 24 Hr 97.8 F-98.0 F 65-88 14-18 100-126/54-82 98 HEART: S1S2, RRR LUNGS: Clear ABDOMEN: Obese, soft, non-tender, non-distended, normal BS EXTREMITIES: No edema Laboratory Results - last 24 hr 11/03/18 11/03/18 06:30 06:30 WBC 7.1 RBC 4.40 Hgb 10.8 Hct 32.7 MCV 74.3 L MCH 24.5 L MCHC 32.9 RDW 17.2 H Plt Count 161 MPV 11.0 Sodium 138 Potassium 4.0 Chloride 104 Carbon Dioxide 27 Anion Gap 6 L BUN 10.7 Creatinine 0.8 Est GFR (CKD-EPI)AfAm 104.65 Est GFR (CKD-EPI)NonAf 90.30 Random Glucose 86 Calcium 8.8 Total Bilirubin 0.7 AST 19 ALT 19 Alkaline Phosphatase 69 Total Protein 7.6 Albumin 3.3 L ASSESSMENT AND PLAN: This is a 43 year old woman with a history of depression, panic attacks who presented to the ED after taking several Lexapro because she was feeling anxious. She reported suicidal thoughts but denied this was a suicide attempt. 1. Overdose with Lexapro - No arrhythmias or QT prolongation noted - Continue to hold Lexapro - Patient now reports this was a suicide attempt - Continue 1:1 observation - Psychiatry follow-up 2. Major depression with suicidal ideation - Lexapro on hold secondary to overdose 3. Obesity with BMI 35.0 4. Disposition as per psychiatry. Patient is medically stable at this time.
--- NOTE | 2018-11-03 15:22 | PN ---
Progress Note (short form) - Note Progress Note: Psych Eval; Patient seen ,no reports of any self damaging or suicidal behaviour. On 1:1. MS: alert, oriented, good eye contact, denies any acute suicidal thoughts or plans Good eyeccontact and not hallycinating or DElusional at this time. Cognition intact. REC: 1) d/c 1:1. 2) discharge when medically clear. 3) Power Press Supervisor to give names of local mental health clinics in [place].
[2018-11-03] MEDS ORDERED: MELATONIN 5 MG TABLETS PO ONE (21:00)
--- NOTE | 2018-11-04 06:32 | DS ---
Physical Exam: SUBJECTIVE: Patient seen and examined at bedside. No acute events. No complaints at this time. OBJECTIVE: Vital Signs Period Temp Pulse Resp BP Sys/Felix Pulse Ox Last 24 Hr 98.2 F-98.8 F 60-79 18-20 111-122/65-69 PHYSICAL EXAM Gen: Comfortable in bed NAD HEENT: NCAT, EOMI Neck: supple, no jvd Cardio: rrr, normal s1s2, no mrg Pulm: cta b/l Abd: soft, nontender, nondistended Ext: no edema LABS Laboratory Results - last 24 hr 11/03/18 11/03/18 06:30 06:30 WBC 7.1 RBC 4.40 Hgb 10.8 Hct 32.7 MCV 74.3 L MCH 24.5 L MCHC 32.9 RDW 17.2 H Plt Count 161 MPV 11.0 Sodium 138 Potassium 4.0 Chloride 104 Carbon Dioxide 27 Anion Gap 6 L BUN 10.7 Creatinine 0.8 Est GFR (CKD-EPI)AfAm 104.65 Est GFR (CKD-EPI)NonAf 90.30 Random Glucose 86 Calcium 8.8 Total Bilirubin 0.7 AST 19 ALT 19 Alkaline Phosphatase 69 Total Protein 7.6 Albumin 3.3 L HOSPITAL COURSE: Date of Admission:10/31/18 Date of Discharge: 11/04/18 Pt is a 43 y/o F with Depression who presented to ED following overdose of her Lexapro. Pt admitted to suicidality and to attempt but denied desire to harm others. Over her hospital course, she felt better and no longer has desire to hurt herself or others. Pt spoke with social work who provided information on resources, and she requested voluntary inpatient treatment. She was seen by Psychiatry and is clear to go to in psych facility on a voluntary basis. Minutes to complete discharge: 30 Discharge Summary Reason For Visit: DRUG OVERDOSE Current Active Problems Overdose (Acute) Condition: Guarded - Instructions Diet, Activity, Other Instructions: You were in the hospital for overdose of prescription medication. Please make sure you follow up with your out patient psychiatrist. You have been given the contact information for Dr. Guzman who saw you in the hospital. You should also follow up with your primary care doctor. Make sure you only take prescription medication as directed. No changes were made to your medications. If you have symptoms of wanting to harm yourself or others, please call your doctor or return to the emergency department. Referrals: Vimal Guzman MD [Staff Physician] - Disposition: HOME - Home Medications Comprehensive Discharge Medication List: Ambulatory Orders Cetirizine HCl [Zyrtec -] 10 mg PO DAILY 07/22/18 Fluticasone Prop 0.05% Nasal [Flonase -] 1 - 2 spray NS BID #1 spray.pump Meclizine HCl 12.5 mg PO PRN PRN 07/22/18 Naproxen [Naprosyn -] 500 mg PO BID PRN 07/22/18 Escitalopram Oxalate [Lexapro -] 5 mg PO DAILY 10/31/18 This patient is new to me today: No Emergency Visit: No Critical Care patient: No - Discharge Referral Referred to [facility] Med [facility] No ATTENDING PHYSICIAN STATEMENT I saw and evaluated the patient. I reviewed the resident's note and discussed the case with the resident. I agree with the resident's findings and plan as documented. SUBJECTIVE: OBJECTIVE: ASSESSMENT AND PLAN:
[2018-11-04] MEDS ORDERED: ACETAMINOPHEN 325 MG TABLET (FP) PO PRN (13:34)
[2018-11-04] MEDS ORDERED: MECLIZINE HCL 12.5 MG TABLET PO PRN (13:37)
--- NOTE | 2018-11-04 16:35 | PN ---
Teaching Attending Note Name of Resident: Myles Grace ATTENDING PHYSICIAN STATEMENT I saw and evaluated the patient. I reviewed the resident's note and discussed the case with the resident. I agree with the resident's findings and plan as documented with exceptions below. SUBJECTIVE: patient seen and examined, feels dizzy/spinning sensation. Overall better. Asking for her lexapro. Denies any other complaints. OBJECTIVE: Vital Signs Period Temp Pulse Resp BP Sys/Felix Pulse Ox Last 24 Hr 97.9 F-98.6 F 60-82 18-20 105-126/63-89 Intake & Output 11/01/18 11/02/18 11/03/18 11/04/18 23:59 23:59 23:59 23:59 Intake Total 240 710 750 240 Balance 240 710 750 240 General: sitting in bed in no acute distress Neck: soft, supple, no JVD Chest: CTAB, no rales or wheezing Abdomen:soft, obese, NT extremities: no edema Home Medications Medication Instructions Recorded Cetirizine HCl [Zyrtec -] 10 mg PO DAILY 07/22/18 Fluticasone Prop 0.05% Nasal 1 - 2 spray NS BID #1 spray.pump 07/22/18 [Flonase -] Meclizine HCl 12.5 mg PO PRN PRN 07/22/18 Naproxen [Naprosyn -] 500 mg PO BID PRN 07/22/18 Escitalopram Oxalate [Lexapro -] 5 mg PO DAILY 10/31/18 Gabapentin 300 mg PO DAILY 11/04/18 Active Medications Acetaminophen (Tylenol -) 650 mg PO Q6H PRN PRN Reason: HEADACHE Last Admin: 11/04/18 15:36 Dose: 650 mg Meclizine HCl (Antivert -) 12.5 mg PO TID PRN PRN Reason: VERTIGO ASSESSMENT AND PLAN: 43 year old woman with a history of depression, panic attacks who presented to the ED after taking several Lexapro because she was feeling anxious. She reported suicidal thoughts but denied this was a suicide attempt. -Intensional Lexapro overdose -Suicial attempt/ideation -Major depression -Obesity BMI 35 -BPPV Plan: QTc LFts wnl. tox screen neg. patient awake and appropriate. Psych input noted. Will continue to hold lexapro for now. Resume meclizine for voluntary inpatient psych placement. Dc when arrangements made.
[2018-11-04 20:51] VITALS: BP 143/90; PULSE 63; TEMP 98.9
== END 2018-11-04 20:57 | DRG 812 ==
LOC: JER 12:20 → JERBED 17:03 → J2W 21:14 → J7W 11-02 17:19
PROVIDERS: ADMIT Internal Medicine; ATTEND Hospitalist
DX: T43.222A Poisoning by selective serotonin reuptake inhibitors, intentional self-harm, initial encounter (principal); R45.851 Suicidal ideations; Y92.038 Other place in apartment as the place of occurrence of the external cause; F32.9 Major depressive disorder, single episode, unspecified; F41.0 Panic disorder [episodic paroxysmal anxiety]; F41.9 Anxiety disorder, unspecified; E66.9 Obesity, unspecified; Z68.35 Body mass index [BMI] 35.0-35.9, adult; H81.10 Benign paroxysmal vertigo, unspecified ear
CPT/HCPCS: 36415; 70450-TC; 71045-TC-FY; 80053; 80307; 81003; 82150; 82550; 83690; 83735; 84443; 84484; 84703; 85025; 85027; 93005; 93010; 99285-25; J0131